=== PATIENT | female | born 1990 | race Two or more races ===

== ENCOUNTER 2022-06-26 14:18 | Emergency (ER) | payer OTHER ==
[~2022-06-26] VITALS: Ht 167.6 cm; Wt 85.3 kg
== END 2022-06-26 19:48 | disposition home or self-care (01) ==
LOC: ER 14:18
DX: S61.215A Laceration without foreign body of left ring finger without damage to nail, initial encounter (principal); W45.8XXA Other foreign body or object entering through skin, initial encounter; Y93.89 Activity, other specified; Y92.9 Unspecified place or not applicable; Y99.9 Unspecified external cause status; Z91.013 Allergy to seafood

== ENCOUNTER 2022-07-04 13:29 | Emergency (ER) | payer OTHER ==
[~2022-07-04] VITALS: Ht 167.6 cm; Wt 85.3 kg
== END 2022-07-04 14:15 | disposition home or self-care (01) ==
LOC: ER 13:29
DX: Z48.02 Encounter for removal of sutures (principal)